=== PATIENT | female | born 2000 | race Hispanic/Latino ===

== ENCOUNTER 2019-09-10 18:03 | Emergency (ER) | payer BC | END 2019-09-10 19:01 | disposition home or self-care (01) | LOC: EDH 18:03 | DX: L02.31 Cutaneous abscess of buttock (principal) ==

== ENCOUNTER 2021-09-25 14:40 | Observation (INO) | payer BC ==
[~2021-09-25] VITALS: Ht 167.6 cm; Wt 86.2 kg
[2021-09-25] MEDS ORDERED: ENOXAPARIN SODIUM 80 MG/0.8 ML SQ SCH (15:30)
[2021-09-25 15:41] LABS: BASOPHILS % (AUTO) 0.7 % (0.0-5.0); EOSINOPHILS % (AUTO) 2.3 % (0.0-8.0); HEMATOCRIT 36.2 % (36-48); MEAN CORPUSCULAR HEMOGLOBIN 28.7 pg (27.0-33.0); MEAN CORPUSCULAR HGB CONC 33.7 g/dL (32.0-36.0); MEAN CORPUSCULAR VOLUME 85.2 fL (80-100); NEUTROPHILS % (AUTO) 72.7 % (40.0-77.0); PLATELET COUNT (AUTO) 338 K/uL (130-400); RED BLOOD CELL COUNT(AUTO) 4.25 MIL/uL (4.00-5.50); RED CELL DISTRIBUTION WIDTH 13.3 % (11.0-15.5); WHITE BLOOD COUNT (AUTO) 12.2 K/uL (4.8-10.8)
[2021-09-25 16:00] LABS: CREATININE 0.6 mg/dL (0.5-1.5); INR 0.99 (0.85-1.15); POTASSIUM 3.5 mmol/L (3.5-5.1); PROTHROMBIN TIME 10.8 SEC (9.6-11.6)
[2021-09-25 16:01] LABS: PARTIAL THROMBOPLASTIN TIME 25.9 SEC (26.3-35.5)
[2021-09-25 16:27] LABS: ALBUMIN 3.3 g/dL (3.5-5.0); BILIRUBIN,TOTAL 0.2 mg/dL (0.2-1.0); TOTAL PROTEIN, SERUM 7.5 g/dL (6.0-8.3)
[2021-09-25] MEDS ORDERED: ACETAMINOPHEN 325 MG TAB PO PRN ×2 (17:00)
[2021-09-25] MEDS ORDERED: ONDANSETRON 4MG INJ IV PRN (17:00)
[2021-09-25] MEDS ORDERED: DIPHENHYDRAMINE HCL 25 MG CAPSULE PO PRN (17:00)
[2021-09-25 17:01] LABS: APPEARANCE,URINE Clear (CLEAR); BILIRUBIN,URINE Negative (NEGATIVE); COLOR,URINE Yellow (YELLOW); GLUCOSE, URINE (UA) Negative (NEGATIVE); KETONES,URINE Negative (NEGATIVE); LEUKOCYTE ESTERASE ,URINE Small (NEGATIVE); NITRATE,URINE Negative (NEGATIVE); OCCULT BLOOD,URINE Trace (NEGATIVE); PROTEIN,URINE Negative (NEGATIVE); UROBILINOGEN,URINE 0.2 mg/dL (0.2-1.0)
[2021-09-25 17:15] LABS: BACTERIA,URINE Few /HPF (None Seen); MUCUS,URINE Few LPF (None Seen); SQUAMOUS EPITHELIAL CELL,UR Few /HPF (0-2)
[2021-09-25] MEDS ORDERED: CEFTRIAXONE 1G VIAL IVP ONE (17:30)
[2021-09-25] MEDS ORDERED: CEFTRIAXONE 1G VIAL IVP SCH (18:00)
[2021-09-25] MEDS: FAMOTIDINE 20MG TAB PO SCH (20:08)
[2021-09-25 21:35] VITALS: BP 122/57
[2021-09-25] MEDS ORDERED: PREN-64 PO (22:44)
[2021-09-25 23:07] VITALS: BP 120/50
[2021-09-26] MEDS ORDERED: ENOXAPARIN SODIUM 80 MG/0.8 ML SQ SCH (03:30)
[2021-09-26 03:44] VITALS: BP 123/77
[2021-09-26 05:12] LABS: HEMATOCRIT 35.4 % (36-48); MEAN CORPUSCULAR HEMOGLOBIN 28.3 pg (27.0-33.0); MEAN CORPUSCULAR HGB CONC 33.6 g/dL (32.0-36.0); MEAN CORPUSCULAR VOLUME 84.3 fL (80-100); RED BLOOD CELL COUNT(AUTO) 4.2 MIL/uL (4.00-5.50); RED CELL DISTRIBUTION WIDTH 13.3 % (11.0-15.5); WHITE BLOOD COUNT (AUTO) 9.2 K/uL (4.8-10.8)
[2021-09-26 05:20] LABS: CREATININE 0.6 mg/dL (0.5-1.5); POTASSIUM 3.9 mmol/L (3.5-5.1)
[2021-09-26 08:00] VITALS: BP 117/65
[2021-09-26] MEDS: FAMOTIDINE 20MG TAB PO SCH (09:29)
[2021-09-26 12:00] VITALS: BP 116/62
[2021-09-26] MEDS ORDERED: CEPH500C2 PO (14:00)
[2021-09-26] MEDS ORDERED: ENOX80DI9 SQ (14:00)
== END 2021-09-26 17:29 | disposition home or self-care (01) ==
LOC: EDH 14:40 → EDHIP 16:40 → 3BH 21:05
PROVIDERS: ADMIT Internal Medicine; ATTEND Internal Medicine
DX: O22.31 Deep phlebothrombosis in pregnancy, first trimester (principal); I82.462 Acute embolism and thrombosis of left calf muscular vein; O23.41 Unspecified infection of urinary tract in pregnancy, first trimester; O99.511 Diseases of the respiratory system complicating pregnancy, first trimester; J45.909 Unspecified asthma, uncomplicated; Z86.718 Personal history of other venous thrombosis and embolism; Z3A.09 9 weeks gestation of pregnancy; Z79.899 Other long term (current) drug therapy; Z98.890 Other specified postprocedural states
CPT/HCPCS: 36415 ×2; 80048; 80053; 81001; 81241; 84484 ×2; 84702; 85025; 85027; 85300; 85303; 85306; 85378 ×2; 85610; 85730; 85732; 86148; 96372 ×2; 96374; 96375; 99284; G0378 ×24; J0696; J1650 ×2

== ENCOUNTER → 2021-09-25 | Outpatient (CLI) | payer BC ==
[~2021-09-25] MED LIST: CEPH500C2 PO; ENOX80DI9 SQ; PREN-64 PO
== END | disposition home or self-care (01) ==
LOC: RAH 13:01
PROVIDERS: ATTEND Obstetrics & Gynecology
DX: M79.605 Pain in left leg (principal)
CPT/HCPCS: 93971

== ENCOUNTER 2022-01-08 21:38 | Observation (INO) | payer BC ==
[~2022-01-08] VITALS: Ht 167.6 cm; Wt 94.8 kg
[2022-01-08 21:43] VITALS: BP 113/53
[2022-01-08 22:13] LABS: APPEARANCE,URINE CLEAR (CLEAR); BILIRUBIN,URINE NEGATIVE (NEGATIVE); COLOR,URINE YELLOW (YELLOW); GLUCOSE, URINE (UA) NEGATIVE (NEGATIVE); KETONES,URINE NEGATIVE (NEGATIVE); LEUKOCYTE ESTERASE ,URINE SMALL (NEGATIVE); NITRATE,URINE NEGATIVE (NEGATIVE); OCCULT BLOOD,URINE NEGATIVE (NEGATIVE); PH,URINE 6.5 (5.0-8.0); PROTEIN,URINE NEGATIVE (NEGATIVE); UROBILINOGEN,URINE 0.2 mg/dL (0.2-1.0)
[2022-01-08 22:21] LABS: AMPHET/METH SCREEN,URINE NEGATIVE (NEGATIVE); BARBITURATE SCREEN, URINE NEGATIVE (NEGATIVE); BENZODIAZEPINES SCREEN,URINE NEGATIVE (NEGATIVE); CANNABINOID SCREEN,URINE NEGATIVE (NEGATIVE); COCAINE SCREEN,URINE NEGATIVE (NEGATIVE); OPIATE SCREEN,URINE NEGATIVE (NEGATIVE); PHENCYCLIDINE SCREEN,URINE NEGATIVE (NEGATIVE)
[2022-01-08 22:27] LABS: BACTERIA,URINE Few /HPF (None Seen); RBC,URINE 0-1 /HPF (0-1); SQUAMOUS EPITHELIAL CELL,UR 0-2 /HPF (0-2)
== END 2022-01-09 03:05 | disposition home or self-care (01) ==
LOC: EDH 21:38 → LDH 21:39
PROVIDERS: ADMIT Obstetrics & Gynecology; ATTEND Obstetrics & Gynecology
DX: O26.892 Other specified pregnancy related conditions, second trimester (principal); R10.30 Lower abdominal pain, unspecified; Z3A.23 23 weeks gestation of pregnancy; Z79.899 Other long term (current) drug therapy
CPT/HCPCS: 59025; 80305; 81001; G0378 ×5; G0379

== ENCOUNTER 2022-04-03 17:08 | Observation (INO) | payer BC ==
[~2022-04-03] VITALS: Ht 165.1 cm; Wt 101.6 kg
[2022-04-03 17:13] VITALS: BP 128/71
[2022-04-03 18:06] LABS: APPEARANCE,URINE Clear (CLEAR); BILIRUBIN,URINE Negative (NEGATIVE); COLOR,URINE Yellow (YELLOW); GLUCOSE, URINE (UA) Negative (NEGATIVE); KETONES,URINE Negative (NEGATIVE); LEUKOCYTE ESTERASE ,URINE Small (NEGATIVE); NITRATE,URINE Negative (NEGATIVE); OCCULT BLOOD,URINE Negative (NEGATIVE); PROTEIN,URINE Negative (NEGATIVE); UROBILINOGEN,URINE 0.2 mg/dL (0.2-1.0)
[2022-04-03 18:37] LABS: BACTERIA,URINE Few /HPF (None Seen); RBC,URINE 0-1 /HPF (0-1); SQUAMOUS EPITHELIAL CELL,UR Rare /HPF (0-2)
== END 2022-04-03 18:45 | disposition home or self-care (01) ==
LOC: EDH 17:08 → LDH 17:09
PROVIDERS: ADMIT Obstetrics & Gynecology; ATTEND Obstetrics & Gynecology
DX: O60.03 Preterm labor without delivery, third trimester (principal); Z3A.36 36 weeks gestation of pregnancy
CPT/HCPCS: 81001; G0378

== ENCOUNTER 2022-04-09 11:46 | Observation (INO) | payer BC ==
[~2022-04-09] VITALS: Ht 165.1 cm; Wt 103.0 kg
[2022-04-09 12:28] LABS: BASOPHILS % (AUTO) 0.5 % (0.0-5.0); EOSINOPHILS % (AUTO) 0.6 % (0.0-8.0); HEMATOCRIT 34.6 % (36-48); LYMPHOCYTES % (AUTO) 16.6 % (21.0-51.0); MEAN CORPUSCULAR HEMOGLOBIN 24.9 pg (27.0-33.0); MEAN CORPUSCULAR HGB CONC 30.9 g/dL (32.0-36.0); MEAN CORPUSCULAR VOLUME 80.5 fL (79-99); MONOCYTES % (AUTO) 7.3 % (3.0-13.0); NEUTROPHILS % (AUTO) 74.3 % (40.0-77.0); NUCLEATED RED BLOOD CELLS 0.2 % (0.0-0.19); PLATELET COUNT (AUTO) 336 K/uL (130-400); RED CELL DISTRIBUTION WIDTH 14.6 % (11.0-15.5); WHITE BLOOD COUNT (AUTO) 12.3 K/uL (4.8-10.8)
[2022-04-09 12:44] LABS: APPEARANCE,URINE Clear (CLEAR); BILIRUBIN,URINE Negative (NEGATIVE); COLOR,URINE Yellow (YELLOW); GLUCOSE, URINE (UA) Negative (NEGATIVE); KETONES,URINE Negative (NEGATIVE); LEUKOCYTE ESTERASE ,URINE Negative (NEGATIVE); NITRATE,URINE Negative (NEGATIVE); OCCULT BLOOD,URINE Negative (NEGATIVE); PH,URINE 7.5 (5.0-8.0); PROTEIN,URINE Negative (NEGATIVE); UROBILINOGEN,URINE 0.2 mg/dL (0.2-1.0)
[2022-04-09 12:47] LABS: ALBUMIN 2.7 g/dL (3.5-5.0); BILIRUBIN,TOTAL 0.2 mg/dL (0.2-1.0); CREATININE 0.6 mg/dL (0.5-1.5); INR 0.93 (0.85-1.15); POTASSIUM 4.3 mmol/L (3.5-5.1); PROTHROMBIN TIME 9.8 SEC (9.6-11.6); TOTAL PROTEIN, SERUM 7.4 g/dL (6.0-8.3); URIC ACID 3.6 mg/dL (2.6-7.2)
[2022-04-09 12:48] LABS: PARTIAL THROMBOPLASTIN TIME 23.9 SEC (26.3-35.5)
[2022-04-17] MEDS ORDERED: PREN-196 PO (00:05)
[2022-04-17] MEDS ORDERED: LORA10TA57 PO (00:05)
[2022-04-17] MEDS ORDERED: ENOX40DI8 SQ (00:05)
== END 2022-04-09 14:40 | disposition home or self-care (01) ==
LOC: LDH 11:46
PROVIDERS: ADMIT Obstetrics & Gynecology; ATTEND Obstetrics & Gynecology
DX: O26.893 Other specified pregnancy related conditions, third trimester (principal); R03.0 Elevated blood-pressure reading, without diagnosis of hypertension; O62.9 Abnormality of forces of labor, unspecified; Z3A.37 37 weeks gestation of pregnancy; Z79.899 Other long term (current) drug therapy
CPT/HCPCS: 36415; 59025; 76805; 80053; 81003; 84550; 85025; 85384; 85610; 85730; A4351; G0378 ×3; G0379

== ENCOUNTER 2023-08-03 19:38 | Observation (INO) | payer BC ==
[~2023-08-03] VITALS: Ht 167.6 cm; Wt 104.3 kg
[~2023-08-03 19:38] MED LIST changes: -CEPH500C2 PO; +ENOX40DI8 SQ; -ENOX80DI9 SQ; +LORA10TA57 PO; +PREN-196 PO; -PREN-64 PO
[2023-08-03 20:01] VITALS: PULSE 103; RESP 18; O2SAT 98
[2023-08-03 20:30] VITALS: BP 120/68
[2023-08-03] MEDS ORDERED: PREN1TAB80 PO (20:50)
[2023-08-03] MEDS ORDERED: ENOX40DI8 SQ (20:50)
[2023-08-03] MEDS ORDERED: LACTATED RINGERS 1000ML IV PRN (21:00)
[2023-08-03 21:01] LABS: APPEARANCE,URINE CLEAR (CLEAR); BILIRUBIN,URINE NEGATIVE (NEGATIVE); COLOR,URINE COLORLESS (YELLOW); GLUCOSE, URINE (UA) NEGATIVE (NEGATIVE); KETONES,URINE NEGATIVE (NEGATIVE); LEUKOCYTE ESTERASE ,URINE 75 Leu/uL (NEGATIVE); NITRATE,URINE NEGATIVE (NEGATIVE); OCCULT BLOOD,URINE NEGATIVE (NEGATIVE); PROTEIN,URINE NEGATIVE (NEGATIVE); UROBILINOGEN,URINE 0.2 mg/dL (0.2-1.0)
[2023-08-03 21:08] LABS: ADD UA MICROSCOPIC YES
[2023-08-03 21:09] LABS: AMPHET/METH SCREEN,URINE NEGATIVE (NEGATIVE); BACTERIA,URINE RARE /HPF (None Seen); BARBITURATE SCREEN, URINE NEGATIVE (NEGATIVE); BENZODIAZEPINES SCREEN,URINE NEGATIVE (NEGATIVE); CANNABINOID SCREEN,URINE NEGATIVE (NEGATIVE); COCAINE SCREEN,URINE NEGATIVE (NEGATIVE); MUCUS,URINE RARE LPF (None Seen); OPIATE SCREEN,URINE NEGATIVE (NEGATIVE); PHENCYCLIDINE SCREEN,URINE NEGATIVE (NEGATIVE); RBC,URINE 0-1 /HPF (0-1); SQUAMOUS EPITHELIAL CELL,UR MOD /HPF (0-2)
== END 2023-08-03 22:20 | disposition home or self-care (01) ==
LOC: EDH 19:38 → LDH 19:39 → EDH 20:14
PROVIDERS: ADMIT Obstetrics & Gynecology; ATTEND Obstetrics & Gynecology
DX: O36.8130 Decreased fetal movements, third trimester, not applicable or unspecified (principal); O26.893 Other specified pregnancy related conditions, third trimester; R10.9 Unspecified abdominal pain; Z3A.29 29 weeks gestation of pregnancy; Z79.899 Other long term (current) drug therapy
CPT/HCPCS: 59025; 96360; 80305; 87088; 81001; 76819; G0378 ×2; J7120